=== PATIENT | male | born 1955 | race Caucasian/White ===

== ENCOUNTER 2022-05-18 13:43 | Emergency (ER) | payer MEDICARE, SELFPAY ==
[2022-05-18 13:53] VITALS: BP 137/83; PULSE 80; RESP 18; TEMP 37; O2SAT 97; BMI 26.6
--- NOTE | 2022-05-18 14:01 | CT_ITS ---
FINAL REPORT CLINICAL HISTORY: leg pain and diminished right lower extr. pulse w swelling FINDINGS: Thin section axial CT images of the abdomen, pelvis and lower extremities were obtained with contrast. Multiplanar reformatted images were also obtained and reviewed. ABDOMEN AND PELVIS: An aortic stent graft is present. The left limb of the graft is patent. The right limb of the graft is occluded. The aneurysm sac measures 5.5 cm. The celiac axis and proximal superior mesenteric artery are unremarkable. There is no renal artery stenosis. The inferior mesenteric artery is occluded at its origin with collateral filling more distally. The right iliac limb is occluded. The right external iliac artery is patent significant stenosis. There is no significant stenosis of the left common iliac artery or external left iliac artery. The internal iliac arteries are patent. RIGHT LOWER EXTREMITY: There is mild irregularity of the right superficial femoral artery. The right deep femoral artery is patent. The right popliteal artery is of small caliber but patent. There is three-vessel runoff to the distal lower leg. LEFT LOWER EXTREMITY: There is no significant stenosis of the left common femoral or superficial femoral arteries. The left deep femoral artery is patent. The left popliteal artery is patent. There is three-vessel runoff to the distal lower leg. OTHER FINDINGS: There is mild dependent atelectasis. There are multiple small gallstones in the gallbladder. Bilateral no cysts are noted. There are small nonobstructing bilateral renal stones. Multiple colonic diverticula are seen. IMPRESSION: Aortic stent graft with occlusion of the right limb of the graft. Aneurysm sac measuring 5.5 cm. Three vessel runoff to the bilateral distal lower legs. Reviewed, Interpreted and Dictated by Gavin Lee III, MD Transcribed by Jahaira Basilio Authenticated and [facility]
[2022-05-18 14:04] VITALS: BP 137/83; PULSE 75; O2SAT 96
--- NOTE | 2022-05-18 14:04 | HMH.EDGENADL ---
Discharge Plan Disposition Patient Disposition: Xfer Critical Access Hosp Condition: Fair Prescriptions Prescriptions: No Action simvastatin 40 mg tablet 40 mg PO DAILY omeprazole 20 mg capsule,delayed release(DR/EC) 20 mg PO DAILY Label Comments: TAKE 1 CAPSULE BY MOUTH EVERY DAY ergocalciferol (vitamin D2) [Vitamin D2] 1,250 mcg (50,000 unit) Capsule 1,250 mcg PO WEEKLY ezetimibe [Zetia] 10 mg Tablet 10 mg PO DAILY Referrals Follow up/Referrals: Mary Cuello [Primary Care Provider] - See instructions Clinical Impressions Clinical Impression: Acute occlusion of artery of lower extremity Discharge ED Provider: Al Cuevas General Adult HPI General Chief complaint: Extremity Problem,Nontraumatic Stated complaint: back and rt leg pain no ao Time Seen by Provider: 05/18/22 13:53 Mode of Arrival: Ambulatory History of Present Illness HPI narrative: Presents with 1 week history of low back pain is gotten worse over the last 2 days. He states the pain radiates into the right leg and he states the right leg has been numb and weak and is dragging it when he walks. He does have a known history of aneurysms involving the aorta as well as the lower extremities and is approximately 3 to 4-month status post abdominal and peripheral aneurysm repair. Related Data Home Medications Medication Instructions Recorded Confirmed ergocalciferol (vitamin D2) 1,250 1,250 mcg PO WEEKLY Supplement 05/18/22 05/18/22 mcg (50,000 unit) capsule (Vitamin D2) ezetimibe 10 mg tablet (Zetia) 10 mg PO DAILY Cholesterol 05/18/22 05/18/22 omeprazole 20 mg capsule,delayed 20 mg PO DAILY stomach 05/18/22 05/18/22 release simvastatin 40 mg tablet 40 mg PO DAILY Cholesterol 05/18/22 05/18/22 Allergies Allergy/AdvReac Type Severity Reaction Status Date / Time No Known Allergies Allergy Unverified 08/22/17 14:50 [facility] Medical History (Updated 05/18/22 @ 17:36 by Al Cuevas MD) Aneurysm artery, iliac Aneurysm, aortic Hyperlipidemia Social History Smoking Status: Current every day smoker alcohol intake: current current occupational status: unemployed Travel in the last 8 weeks: None ROS Obtained: Yes All systems reviewed & no additional complaints except as documented Constitutional Constitutional: Reports system reviewed and no additional complaints, except as documented Physical Exam General General appearance: alert and in no apparent distress Head Head exam: atraumatic Eye Eye exam: Present normal appearance and PERRL ENT ENT exam: Present normal exam and normal oropharynx Neck Neck exam: Present normal inspection Chest Chest inspection: Present normal inspection and symmetric chest wall rise Respiratory Respiratory exam: Present normal lung sounds bilaterally Cardiovascular Cardiovascular exam: Present regular rate and normal rhythm Abdominal Exam Abdominal exam: Present soft; Absent tenderness Extremities Exam Extremities exam: Present normal inspection Back Exam Back exam: Absent CVA tenderness (R) or vertebral tenderness Neurological Exam Neurological exam: Present alert, oriented X3 and motor sensory deficit (The right leg is weak compared to the left although he is able to pick it up off the bed. Decreased light touch to the right leg compared to the left.) Psychiatric Psychiatric exam: Present normal affect Skin Skin exam: Present warm and dry Lymphatic Lymphatic Findings: no adenopathy Medical Decision Making Seb Inquiry Pt receiving controlled substance: Yes Seb was queried for this patient: No Risks and benefits of using a controlled substance: were discussed with pt by me Vital Signs: 05/18/22 13:53 05/18/22 14:15 05/18/22 14:04 Temperature 98.6 F Temperature Source Oral Pulse Rate 80 75 Pulse Rate [Right Radial] 80 Respiratory Rate 18 16 Blood Pressure 137/83 137/83 Blood Pressure [Right Arm] 137/83 Blood P
[2022-05-18 14:09] VITALS: BMI 26.6
--- NOTE | 2022-05-18 14:10 | CA_ITS ---
FINAL REPORT CLINICAL HISTORY: cold right lower extremity leg weakness with foot drag, S/p AAA iliac aneurysm repair < 3 months ago FINDINGS: RIGHT LOWER EXTREMITY DUPLEX DOPPLER Color Doppler and duplex Doppler of the right lower extremity was performed. Spectral analysis was also performed. Velocities were measured at multiple levels. All velocities are in centimeters per second. DOLL REPAIRER: 32 SFA Prox: 15 SFA Mid: 16 SFA Distal: 9 Pop: 8 POWER ENGINEER: 8 WOLF: 5 Waveforms are monophasic throughout IMPRESSION: Findings consistent with inflow disease. This could be further evaluated with CTA or MRA. Reviewed, Interpreted and Dictated by Gavin Lee III, MD Transcribed by Jahaira Basilio Authenticated and [facility]
--- NOTE | 2022-05-18 14:12 | PC.NURSE ---
pt moved to room 6 for closer monitoring
[2022-05-18 14:15] VITALS: BP 137/83; PULSE 80; RESP 16; O2SAT 98
--- NOTE | 2022-05-18 14:18 | PC.NURSE ---
rad notified of CT order
--- NOTE | 2022-05-18 14:20 | PC.NURSE ---
CV lab staff notified of orders on pt.
--- NOTE | 2022-05-18 14:25 | PC.NURSE ---
CV lab staff at
[2022-05-18 14:32] VITALS: BP 126/78; PULSE 77; O2SAT 95
--- NOTE | 2022-05-18 14:38 | PC.NURSE ---
verbal report from CV lab staff states pt has flow all the way down leg on R but states its not greater than 30 mm/hg- states this is low flow. notified ER of this
[2022-05-18 14:48] LABS: Basophils # 0.2 K/mm3 (0-0.2); Basophils % 2.8 % (0.1-2.0); Eosinophils # 0.1 K/mm3 (0.0-0.4); Eosinophils % 1.6 % (0.1-12.0); Hematocrit 48.3 % (42.0-52.0); Lymphocytes # 1.8 K/mm3 (0.7-4.5); Lymphocytes % 20.8 % (10-50); Mean Corpuscular HGB Conc 33.2 g/dL (31.8-35.4); Mean Corpuscular Hemoglobin 30.1 pg (27.0-31.2); Mean Corpuscular Volume 90.7 fl (80-94); Monocytes # 0.6 K/mm3 (0.1-1.0); Monocytes % 6.5 % (1.7-9.3); Neutrophils % 68.4 % (37.0-80.0); Platelet Count 199 K/mm3 (142-424); Red Blood Count 5.33 M/mm3 (4.60-6.20); Red Cell Distribution Width 14.6 % (11.5-17.5); White Blood Count 8.7 K/mm3 (4.8-10.8)
[2022-05-18 14:57] LABS: Alanine Aminotransferase 26 U/L (12-78); Albumin Level 4.2 g/dl (3.5-5.0); Albumin/Globulin Ratio 1.4 (1.1-1.8); Alkaline Phosphatase 105 U/L (38-126); Aspartate Amino Transferase 28 U/L (17-59); Bilirubin,Total 0.4 mg/dl (0.2-1.3); Blood Urea Nitrogen 21 mg/dl (9-20); Calcium 8.9 mg/dl (8.4-10.2); Carbon Dioxide 28 mmol/L (22.0-30.0); Chloride 103 mmol/L (98-107); Creatinine Clearance Estimated 88 mL/min (50-200); Estimated Glomerular Filt Rate 96 ml/min (>60); GFR (African American) 117 ML/MIN (>60); Globulin 2.9 g/dL (1.3-3.2); Glucose 114 mg/dl (74-100); INR 0.93 (0.9-1.1); Prothrombin Time 10.1 seconds (10.1-12.5); Sodium 137 mmol/L (136-145); Total Protein,Serum 7.1 g/dl (6.3-8.2)
[2022-05-18 15:01] VITALS: BP 122/75; PULSE 73; O2SAT 96
--- NOTE | 2022-05-18 15:08 | PC.NURSE ---
RADIOLOGY AT BEDSIDE TO TAKE PT TO CT
--- NOTE | 2022-05-18 16:06 | PC.NURSE ---
pt back in bed after using urinal. Pt tolerated standing well. Call light within reach, pt states no needs at this time. Will continue to monitor
[2022-05-18 16:10] LABS: Microscopic, Urine URINE MICROSCOPIC (MICROSCOPIC)
--- NOTE | 2022-05-18 16:12 | PC.NURSE ---
Able to doppler femoral pulse but unable to obtain pulses of Popliteal, post tib or DP. Old bruising like area noted to R lateral knee area-pt reports no known injury but states he noticed a bruised area earlier this week. Pt R calf if very sensitive to touch.
--- NOTE | 2022-05-18 16:15 | PC.NURSE ---
notified ER pt CT result is in the computer
[2022-05-18 16:18] LABS: Appearance,Urine CLEAR (Clear); Bilirubin,Urine Negative (Negative); Blood, Urine Negative (Negative); Color,Urine YELLOW (Yellow); Glucose,Urine (UA) Negative (Negative); Ketones,Urine Negative (Negative); Leukocyte Esterase,Urine Negative (Negative); Nitrate,Urine Negative (Negative); Protein,Urine Negative (Negative); Specific Gravity, Urine 1.025 (1.005-1.030); Urobilinogen,Urine 0.2 EU/dl (0.2)
--- NOTE | 2022-05-18 16:38 | PC.NURSE ---
waiting [employer] fusion middleware architect back from [facility] about possible transfer
[2022-05-18 16:47] LABS: Bacteria,Urine Trace /lpf; RBC,Urine Occasional #/hpf (0-3); Squamous Epithelial Cell,Urine Occasional #/hpf (0-5)
--- NOTE | 2022-05-18 17:02 | PC.NURSE ---
VASCULAR SURGEON CALLED BACK TO SPEAK WITH ER DOCTOR ABOUT HAVING PT TRANSFERRED TO [facility]
--- NOTE | 2022-05-18 17:03 | PC.NURSE ---
Addendum entered by Sadia Martinez RN 05/18/22 17:38: pt accepted per Dr. Samano. States they are awaiting discharges. Original Note: [facility] pt. awaiting call from hospitalist for bed #
--- NOTE | 2022-05-18 17:36 | PC.NURSE ---
notified lab of new order for heparin drip baseline PTT
--- NOTE | 2022-05-18 17:37 | PC.NURSE ---
spoke with [facility] for heparin drip consult with bolus dose. States pt will need 7,000 unit bolus one time of Heparin and will start Heparin drip at 1,500 units/hr (18 units/kg/hr). Reports he will enter orders for pt.
--- NOTE | 2022-05-18 17:40 | PC.NURSE ---
updated pt on POC and also granddaughter who is at the bedside.
--- NOTE | 2022-05-18 17:43 | PC.NURSE ---
shift change report given to melisa alas pt is awaiting transfer
[2022-05-18 17:48] LABS: PTT Heparin (inpatient only) 25.6 Seconds (23.6-34.0)
[2022-05-18 19:25] LABS: PTT Heparin (inpatient only) 25.9 Seconds (23.6-34.0)
[2022-05-18 20:04] VITALS: BP 122/75; PULSE 73; RESP 16; TEMP 37; O2SAT 98
== END 2022-05-18 20:07 | disposition critical access hospital (66) ==
PROVIDERS: Emergency Provider Emergency Medicine; PCP Nurse Practitioner Family
DX: I77.1 Stricture of artery (principal); Z79.899 Other long term (current) drug therapy; Z72.0 Tobacco use; Z95.818 Presence of other cardiac implants and grafts
CPT/HCPCS: 75635; 80053; 81001; 85025; 85610; 85730; 93926; 96374; 99284; Q9967